=== PATIENT | female | born 1960 | race Caucasian/White ===

== ENCOUNTER 2023-07-28 07:11 | Emergency (ER) | payer OTHER ==
[~2023-07-28] VITALS: Ht 147.3 cm; Wt 54.4 kg
[2023-07-28] MEDS ORDERED: CLONAZEPAM0.125 MG PO (07:23)
[2023-07-28 08:37] LABS: ABG PH 7.489 (7.35-7.45); ABG PO2 97.2 mmHg (80-100); ABG pCO2 30.4 mmHg (35-45); BASE EXCESS 0.3 mmol/l; BICARBONATE 22.6 mmol/l (23-25); SaO2 98.1 %; Tco2 23.5 mmol/l; allen test SATISFACTORY; o2 21 %; puncture site RADIAL RIGHT
== END 2023-07-28 18:48 | disposition home or self-care (01) ==
LOC: ER 07:12
DX: F41.1 Generalized anxiety disorder (principal); J45.909 Unspecified asthma, uncomplicated; Z88.8 Allergy status to other drugs, medicaments and biological substances

== ENCOUNTER 2023-11-10 12:42 | Emergency (ER) | payer OTHER ==
[~2023-11-10] VITALS: Ht 147.3 cm; Wt 54.0 kg
[~2023-11-10 12:42] MED LIST: CLONAZEPAM0.125 MG PO
[2023-11-10] MEDS ORDERED: PROZAC20 MG PO (12:56)
[2023-11-10] MEDS ORDERED: MELATONIN10 MG PO (12:56)
[2023-11-10] MEDS ORDERED: CLONAZEPAM 1 MG TABLET PO STA (13:39)
== END 2023-11-10 16:24 | disposition home or self-care (01) ==
LOC: ER 12:43
DX: F41.8 Other specified anxiety disorders (principal); Z88.8 Allergy status to other drugs, medicaments and biological substances

== ENCOUNTER 2024-02-27 20:05 | Emergency (ER) | payer OTHER ==
[~2024-02-27] VITALS: Ht 157.5 cm; Wt 54.4 kg
[~2024-02-27 20:05] MED LIST changes: +MELATONIN10 MG PO; +PROZAC20 MG PO
[2024-02-27] MEDS ORDERED: ATIVAN0.5 M1 (20:49)
[2024-02-27] MEDS ORDERED: RESTORIL7.5 MG (20:49)
[2024-02-27] MEDS ORDERED: PROSCAR5 MG (20:49)
[2024-02-27] MEDS ORDERED: PROMETHAZINE HCL 25 MG/ML AMPUL IM STA (20:58)
[2024-02-27] MEDS ORDERED: DEXTROSE 5 % AND 0.9 % NACL 500 ML IV STA (20:59)
[2024-02-27] MEDS ORDERED: ONDANSETRON HCL 2 MG/ML VIAL IV STA (21:00)
[2024-02-27] MEDS ORDERED: FAMOTIDINE/PF 20 MG/2 ML VIAL IV PUSH STA (21:00)
[2024-02-27] MEDS ORDERED: PROMETHAZINE HCL 25 MG/ML AMPUL ONE (21:06)
[2024-02-27] MEDS ORDERED: ONDANSETRON HCL 2 MG/ML VIAL ONE (21:06)
[2024-02-27] MEDS ORDERED: FAMOTIDINE/PF 20 MG/2 ML VIAL ONE (21:06)
[2024-02-27 21:46] LABS: HEMATOCRIT 38.2 % (36.0-45.00); HEMOGLOBIN 13.3 g/dL (12.0-15.00); MEAN CELL VOLUME 88.2 fL (80.00-100.00); MEAN CORPUSCULAR HEMOGLOBIN 30.7 pg (27.00-32.0); MEAN CORPUSCULAR HGB CONC 34.8 g/dl (32.0-36.0); PLATELET COUNT 243 K/uL (150-450); RED BLOOD COUNT 4.33 M/uL (4.00-6.00); RED CELL DISTRIBUTION WIDTH 13.9 % (11.5-14.5)
[2024-02-27 22:03] LABS: AMYLASE 88 U/L (25-115); LIPASE 46 U/L (13-75)
[2024-02-27 22:58] LABS: PH,URINE 6.5 (5.0-8.0); URINE APPEARANCE Clear; URINE BILIRRUBIN Negative (NEGATIVE); URINE BLOOD Trace; URINE COLOR Yellow; URINE GLUCOSE Negative (NEGATIVE); URINE LEUKOCYTE Large; URINE NITRATE Negative; URINE PROTEIN Negative (NEGATIVE); URINE UROBILINOGEN 0.2 E.U./dl
[2024-02-27 23:01] LABS: URINE BACTERIA 79.3 uL (0.0-1933); URINE EPITHELIAL CELLS 23.3 uL (0.0-38.8); URINE RBC 11.7 uL (0.0-20.8); URINE WBC 838.3 uL (0.0-23.2)
[2024-02-27] MEDS ORDERED: KETOROLAC TROMETHAMINE 30 MG VIAL IV STA (23:16)
[2024-02-27] MEDS ORDERED: LIDOCAINE HCL 4% Topic SOLUTION TOP STA (23:17)
[2024-02-27] MEDS ORDERED: MAGNESIUM HYDROXIDE 400 MG/5 ML ML PO STA (23:18)
[2024-02-27] MEDS ORDERED: LIDOCAINE HCL VISCOUS 20MG/ML BLIST 15ML MM ONE (23:38)
[2024-02-27] MEDS ORDERED: KETOROLAC TROMETHAMINE 30 MG VIAL ONE (23:38)
[2024-02-27] MEDS ORDERED: MAGNESIUM HYDROXIDE 30 ML BLIST.PACK PO ONE (23:38)
== END 2024-02-28 00:48 | disposition home or self-care (01) ==
LOC: ER 20:05
PROVIDERS: Emergency Medicine
DX: K29.70 Gastritis, unspecified, without bleeding (principal); K27.9 Peptic ulcer, site unspecified, unspecified as acute or chronic, without hemorrhage or perforation; Z88.8 Allergy status to other drugs, medicaments and biological substances; F41.8 Other specified anxiety disorders

== ENCOUNTER 2024-03-22 10:04 | Emergency (ER) | payer OTHER ==
[~2024-03-22] VITALS: Ht 149.9 cm; Wt 59.0 kg
[~2024-03-22 10:04] MED LIST changes: +ATIVAN0.5 M1; +PROSCAR5 MG; +RESTORIL7.5 MG
[2024-03-22] MEDS ORDERED: LORazepam 2 MG/ML VIAL ONE (10:21)
[2024-03-22] MEDS ORDERED: FAMOTIDINE/PF 20 MG/2 ML VIAL IV PUSH ONE (10:30)
[2024-03-22] MEDS ORDERED: LORazepam 2 MG/ML VIAL IV ONE (10:30)
== END 2024-03-22 12:36 | disposition home or self-care (01) ==
LOC: ER 10:04
DX: F41.0 Panic disorder [episodic paroxysmal anxiety] (principal); Z88.0 Allergy status to penicillin

== ENCOUNTER 2024-04-16 12:48 | Emergency (ER) | payer OTHER ==
[~2024-04-16] VITALS: Ht 147.3 cm; Wt 49.9 kg
[2024-04-16] MEDS ORDERED: HALOPERIDOL LACTATE 5 MG/ML AMPUL IM ONE (13:15)
[2024-04-16] MEDS ORDERED: DIPHENHYDRAMINE HCL 50 MG/ML VIAL 1ML IM ONE (13:15)
[2024-04-16] MEDS ORDERED: DIPHENHYDRAMINE HCL 50 MG/ML VIAL 1ML ONE (13:23)
[2024-04-16] MEDS ORDERED: HALOPERIDOL LACTATE 5 MG/ML AMPUL ONE (13:23)
[2024-04-16] MEDS ORDERED: LORazepam 2 MG/ML VIAL IM STA (14:02)
[2024-04-16] MEDS ORDERED: LORazepam 2 MG/ML VIAL ONE (14:03)
== END 2024-04-16 16:30 | disposition home or self-care (01) ==
LOC: ER 12:48
DX: F41.0 Panic disorder [episodic paroxysmal anxiety] (principal); Z88.6 Allergy status to analgesic agent

== ENCOUNTER 2024-04-26 15:07 | Emergency (ER) | payer OTHER ==
[~2024-04-26] VITALS: Ht 121.9 cm; Wt 46.7 kg
[2024-04-26] MEDS ORDERED: LORazepam 2 MG/ML VIAL IV ONE (17:00)
[2024-04-26] MEDS ORDERED: 0.9 % SODIUM CHLORIDE 1,000 ML IV ONE (17:00)
[2024-04-26] MEDS ORDERED: LORazepam 2 MG/ML VIAL ONE (17:19)
== END 2024-04-26 18:59 | disposition home or self-care (01) ==
LOC: ER 15:07
DX: F41.0 Panic disorder [episodic paroxysmal anxiety] (principal); Z88.8 Allergy status to other drugs, medicaments and biological substances

== ENCOUNTER 2024-05-03 14:00 | Emergency (ER) | payer OTHER ==
[~2024-05-03] VITALS: Ht 147.3 cm; Wt 47.6 kg
[2024-05-03] MEDS ORDERED: LORazepam 2 MG/ML VIAL IV ONE (16:15)
[2024-05-03 16:39] LABS: HEMOGLOBIN 13.6 g/dL (12.0-15.00); MEAN CELL VOLUME 89.3 fL (80.00-100.00); MEAN CORPUSCULAR HEMOGLOBIN 31.2 pg (27.00-32.0); PLATELET COUNT 218 K/uL (150-450); RED BLOOD COUNT 4.37 M/uL (4.00-6.00)
[2024-05-03] MEDS ORDERED: FAMOTIDINE/PF 20 MG/2 ML VIAL ONE (16:41)
[2024-05-03] MEDS ORDERED: LORazepam 2 MG/ML VIAL ONE (16:41)
[2024-05-03 17:31] LABS: CALCIUM 9.4 mg/dL (8.5-10.1); CREATININE SERUM 0.92 mg/dL (0.55-1.02); GFR 62.06; POTASSIUM 3.69 mEq/L (3.5-5.1)
== END 2024-05-03 17:55 | disposition home or self-care (01) ==
LOC: ER 14:01
PROVIDERS: General Practice
DX: F41.8 Other specified anxiety disorders (principal); Z88.8 Allergy status to other drugs, medicaments and biological substances; F32.89 Other specified depressive episodes

== ENCOUNTER 2024-06-14 18:39 | Emergency (ER) | payer OTHER ==
[~2024-06-14] VITALS: Ht 152.4 cm; Wt 49.9 kg
[2024-06-14] MEDS ORDERED: ATIVAN1 M1 (18:41)
[2024-06-14] MEDS ORDERED: ONDANSETRON HCL 2 MG/ML VIAL IV STA (18:58)
[2024-06-14] MEDS ORDERED: LORazepam 1 MG TABLET PO ONE (19:00)
[2024-06-14] MEDS ORDERED: ACETAMINOPHEN 500 MG GEL..CAP PO ONE (19:15)
== END 2024-06-14 21:13 | disposition home or self-care (01) ==
LOC: ER 18:41
DX: F32.89 Other specified depressive episodes (principal); Z88.8 Allergy status to other drugs, medicaments and biological substances
CPT/HCPCS: 96365; 99282; J2405

== ENCOUNTER 2024-07-06 11:18 | Emergency (ER) | payer OTHER ==
[~2024-07-06] VITALS: Ht 147.3 cm; Wt 44.9 kg
[~2024-07-06 11:18] MED LIST changes: +ATIVAN1 M1
[2024-07-06] MEDS ORDERED: PEPCID AC20 MG PO (12:00)
[2024-07-06] MEDS ORDERED: NASAL MIST126 ML (12:00)
[2024-07-06] MEDS ORDERED: FAMOTIDINE/PF 20 MG in 0.9 % SODIUM CHLORIDE 8 ML IV PUSH STA (12:11)
[2024-07-06] MEDS ORDERED: LORazepam 2 MG/ML VIAL IM ONE (12:15)
[2024-07-06] MEDS ORDERED: ONDANSETRON HCL 2 MG/ML VIAL IV ONE (12:45)
== END 2024-07-06 14:48 | disposition home or self-care (01) ==
LOC: ER 11:18
DX: F32.89 Other specified depressive episodes (principal); Z88.8 Allergy status to other drugs, medicaments and biological substances

== ENCOUNTER 2024-07-10 13:11 | Emergency (ER) | payer OTHER ==
[~2024-07-10] VITALS: Ht 147.3 cm; Wt 43.1 kg
[~2024-07-10 13:11] MED LIST changes: +NASAL MIST126 ML; +PEPCID AC20 MG PO
[2024-07-10] MEDS ORDERED: SODIUM CHLORIDE IV STA (13:39)
[2024-07-10] MEDS ORDERED: DIPHENHYDRAMINE HCL 50 MG/ML VIAL 1ML IV STA (13:40)
[2024-07-10] MEDS ORDERED: LORazepam 2 MG/ML VIAL IM STA ×2 (14:19→14:22)
[2024-07-10] MEDS ORDERED: FAMOtidine 10 MG/ML (4ML VIAL) IV PUSH STA (16:17)
[2024-07-10] MEDS ORDERED: PEPCID AC20 MG PO (16:41)
== END 2024-07-10 16:46 | disposition home or self-care (01) ==
LOC: ER 13:11
DX: F41.9 Anxiety disorder, unspecified (principal); F32.A Depression, unspecified; Z88.8 Allergy status to other drugs, medicaments and biological substances

== ENCOUNTER → 2024-10-01 | Emergency (ER) | payer OTHER ==
[~2024-10-01] VITALS: Ht 162.6 cm; Wt 68.0 kg
== END | disposition left against medical advice (07) ==
LOC: ER 15:46
DX: Z53.21 Procedure and treatment not carried out due to patient leaving prior to being seen by health care provider (principal)

== ENCOUNTER → 2024-10-05 | Emergency (ER) | payer OTHER ==
[~2024-10-05] VITALS: Ht 147.3 cm; Wt 54.0 kg
== END | disposition left against medical advice (07) ==
LOC: ER 12:23
DX: Z53.21 Procedure and treatment not carried out due to patient leaving prior to being seen by health care provider (principal)

== ENCOUNTER 2024-12-24 10:45 | Emergency (ER) | payer OTHER ==
[~2024-12-24] VITALS: Ht 147.3 cm; Wt 52.2 kg
[2024-12-24 10:59] VITALS: BP 157/74; O2SAT 97
[2024-12-24] MEDS ORDERED: LORazepam 2 MG/ML VIAL IV PUSH ONE (11:00)
[2024-12-24] MEDS ORDERED: LORazepam 2 MG/ML VIAL ONE (11:20)
== END 2024-12-24 13:58 | disposition home or self-care (01) ==
LOC: ER 10:45
DX: F41.0 Panic disorder [episodic paroxysmal anxiety] (principal); Z88.8 Allergy status to other drugs, medicaments and biological substances

== ENCOUNTER 2024-12-31 14:43 | Emergency (ER) | payer OTHER ==
[~2024-12-31] VITALS: Ht 147.3 cm; Wt 52.2 kg
[2024-12-31] MEDS ORDERED: REMERON15 M1 (15:03)
[2024-12-31] MEDS ORDERED: FAMOTIDINE/PF 20 MG in 0.9 % SODIUM CHLORIDE 8 ML IV PUSH STA (15:04)
[2024-12-31] MEDS ORDERED: ONDANSETRON HCL 2 MG/ML VIAL IV STA (15:04)
[2024-12-31] MEDS ORDERED: 0.9 % SODIUM CHLORIDE 1,000 ML IV STA (15:04)
[2024-12-31] MEDS ORDERED: LORazepam 2 MG/ML VIAL IV ONE ×2 (15:15→19:30)
[2024-12-31] MEDS ORDERED: ONDANSETRON HCL 2 MG/ML VIAL ONE (15:45)
[2024-12-31] MEDS ORDERED: FAMOTIDINE/PF 20 MG/2 ML VIAL ONE (15:46)
[2024-12-31 16:44] LABS: HEMATOCRIT 39.2 % (36.0-45.00); HEMOGLOBIN 13.7 g/dL (12.0-15.00); MEAN CELL VOLUME 90.4 fL (80.00-100.00); MEAN CORPUSCULAR HEMOGLOBIN 31.6 pg (27.00-32.0); PLATELET COUNT 217 K/uL (150-450); RED BLOOD COUNT 4.33 M/uL (4.00-6.00); RED CELL DISTRIBUTION WIDTH 13.5 % (11.5-14.5)
[2024-12-31] MEDS ORDERED: LORazepam 2 MG/ML VIAL ONE ×2 (16:48→19:49)
[2024-12-31 17:26] LABS: AMYLASE 81 U/L (25-115); LIPASE 33 U/L (13-75)
[2024-12-31 17:30] LABS: ALBUMIN 3.5 gm/dL (3.4-5.0); BILIRUBIN TOTAL 0.39 mg/dL (0.3-1.2); CALCIUM 8.9 mg/dL (8.5-10.1); CREATININE SERUM 0.69 mg/dL (0.55-1.02); GFR 86.21; POTASSIUM 4.21 mEq/L (3.5-5.1); TOTAL PROTEIN 6.5 gm/dL (6.4-8.2)
[2024-12-31] MEDS ORDERED: MIRALAX17 GM PO (19:20)
[2025-01-01] MEDS ORDERED: PROTONIX40 MG PO (14:43)
[2025-01-01] MEDS ORDERED: NORFLEX100MG PO (14:43)
[2025-01-01] MEDS ORDERED: LEVSIN/SL0.125 MG SL (14:43)
== END 2024-12-31 22:01 | disposition home or self-care (01) ==
LOC: ER 14:43
PROVIDERS: Emergency Medicine
DX: K59.00 Constipation, unspecified (principal); F41.9 Anxiety disorder, unspecified; Z88.8 Allergy status to other drugs, medicaments and biological substances

== ENCOUNTER 2025-01-01 11:29 | Emergency (ER) | payer OTHER ==
[~2025-01-01] VITALS: Ht 147.3 cm; Wt 50.8 kg
[~2025-01-01 11:29] MED LIST changes: +MIRALAX17 GM PO; +REMERON15 M1
[2025-01-01] MEDS ORDERED: LORazepam 2 MG/ML VIAL IM ONE (12:30)
[2025-01-01] MEDS ORDERED: FAMOtidine 10 MG/ML (4ML VIAL) IV ONE (12:30)
[2025-01-01] MEDS ORDERED: KETOROLAC TROMETHAMINE 30 MG VIAL IV ONE (12:30)
[2025-01-01] MEDS ORDERED: ONDANSETRON HCL 2 MG/ML VIAL IV ONE (12:30)
[2025-01-01 13:14] LABS: HEMATOCRIT 41.8 % (36.0-45.00); HEMOGLOBIN 14.1 g/dL (12.0-15.00); MEAN CELL VOLUME 91.8 fL (80.00-100.00); MEAN CORPUSCULAR HEMOGLOBIN 31.1 pg (27.00-32.0); MEAN CORPUSCULAR HGB CONC 33.8 g/dl (32.0-36.0); PLATELET COUNT 226 K/uL (150-450); RED BLOOD COUNT 4.55 M/uL (4.00-6.00); RED CELL DISTRIBUTION WIDTH 13.5 % (11.5-14.5)
[2025-01-01 13:50] LABS: ALBUMIN 3.7 gm/dL (3.4-5.0); BILIRUBIN TOTAL 0.37 mg/dL (0.3-1.2); CREATININE SERUM 0.91 mg/dL (0.55-1.02); GFR 62.64; GLOBULINA 3.4 G/DL (2.4-3.5); POTASSIUM 4.02 mEq/L (3.5-5.1); TOTAL PROTEIN 7.1 gm/dL (6.4-8.2)
[2025-01-01] MEDS ORDERED: LEVSIN/SL0.125 MG SL (14:43)
[2025-01-01] MEDS ORDERED: NORFLEX100MG PO (14:43)
[2025-01-01] MEDS ORDERED: PROTONIX40 MG PO (14:43)
== END 2025-01-01 15:37 | disposition home or self-care (01) ==
LOC: ER 11:30
PROVIDERS: General Practice
DX: R10.11 Right upper quadrant pain (principal); Z88.8 Allergy status to other drugs, medicaments and biological substances; R11.10 Vomiting, unspecified; F41.8 Other specified anxiety disorders; K80.20 Calculus of gallbladder without cholecystitis without obstruction

== ENCOUNTER 2025-04-01 18:41 | Emergency (ER) | payer OTHER ==
[~2025-04-01] VITALS: Ht 147.3 cm; Wt 51.3 kg
[~2025-04-01 18:41] MED LIST changes: +LEVSIN/SL0.125 MG SL; +NORFLEX100MG PO; +PROTONIX40 MG PO
[2025-04-01 18:43] VITALS: BP 130/80; O2SAT 97
[2025-04-01] MEDS ORDERED: LORazepam 2 MG/ML VIAL IM ONE (19:00)
== END 2025-04-01 19:36 | disposition home or self-care (01) ==
LOC: ER 18:41
DX: R06.02 Shortness of breath (principal); F41.9 Anxiety disorder, unspecified; R00.2 Palpitations; R11.0 Nausea; Z88.0 Allergy status to penicillin

== ENCOUNTER → 2025-04-16 | Emergency (ER) | payer OTHER ==
[~2025-04-16] VITALS: Ht 147.3 cm; Wt 51.7 kg
[~2025-04-16] MED LIST changes: +LORazepam 2 MG/ML VIAL IM STA
== END | disposition left against medical advice (07) ==
LOC: ER 11:21
DX: Z53.21 Procedure and treatment not carried out due to patient leaving prior to being seen by health care provider (principal); Z88.1 Allergy status to other antibiotic agents

== ENCOUNTER 2025-05-30 12:37 | Emergency (ER) | payer OTHER ==
[~2025-05-30] VITALS: Ht 147.3 cm; Wt 53.5 kg
[~2025-05-30 12:37] MED LIST changes: -LORazepam 2 MG/ML VIAL IM STA
[2025-05-30] MEDS ORDERED: VISTARIL50 MG/ML (12:41)
[2025-05-30] MEDS ORDERED: PROZAC10 MG PO (12:41)
[2025-05-30] MEDS ORDERED: DIPHENHYDRAMINE HCL 50 MG/ML VIAL 1ML IV ONE (13:00)
[2025-05-30] MEDS ORDERED: LORazepam 2 MG/ML VIAL IM ONE ×2 (13:00→13:15)
[2025-05-30] MEDS ORDERED: DIPHENHYDRAMINE HCL 50 MG/ML VIAL 1ML ONE (13:10)
[2025-05-30] MEDS ORDERED: LORazepam 2 MG/ML VIAL ONE (13:10)
[2025-05-30] MEDS ORDERED: ONDANSETRON HCL 2 MG/ML VIAL ONE (13:38)
[2025-05-30] MEDS ORDERED: ONDANSETRON HCL 2 MG/ML VIAL IV ONE (13:45)
[2025-05-30 13:50] LABS: BASO % 0.4 % (0.1-1.2); EOS # 0.01 (0.04-0.54); EOS % 0.1 % (0.7-7.0); LYMPH # 1.51 (1.18-3.74); LYMPH % 18.0 % (19.3-53.1); MEAN PLATELET VOLUME 10.20 fl (9.4-12.4); MONO # 0.57 (0.24-0.82); MONO % 6.8 % (4.7-12.5); NEUT # 6.25 (1.56-6.13); NEUT % 74.3 % (34.0-71.1); RED CELL DISTRIBUTION WIDTH 12.6 % (11.6-14.4)
[2025-05-30 14:16] LABS: ALT/SGPT 16.0 U/L (12-78); AST/SGOT 14.0 U/L (15-37); BILIRUBIN TOTAL 0.41 mg/dL (0.3-1.2); BUN CREA RATIO 14.0 (7.0-25.0); CREATININE SERUM 1.15 mg/dL (0.55-1.02); GFR 47.81; GLOBULINA 3.5 G/DL (2.4-3.5); GLUCOSE FASTING 121.0 mg/dL (65-100); OSMOLALITY SERUM 282.0 MOSM/KG (275-295)
== END 2025-05-30 14:54 | disposition home or self-care (01) ==
LOC: ER 12:38
PROVIDERS: General Practice
DX: F41.0 Panic disorder [episodic paroxysmal anxiety] (principal); F43.0 Acute stress reaction; I10 Essential (primary) hypertension; Z88.8 Allergy status to other drugs, medicaments and biological substances

== ENCOUNTER 2025-06-04 21:37 | Emergency (ER) | payer OTHER ==
[~2025-06-04] VITALS: Ht 147.3 cm; Wt 53.5 kg
[~2025-06-04 21:37] MED LIST changes: +PROZAC10 MG PO; +VISTARIL50 MG/ML
[2025-06-04] MEDS ORDERED: DIPHENHYDRAMINE HCL 50 MG/ML VIAL 1ML IM STA (23:40)
[2025-06-04] MEDS ORDERED: LORazepam 2 MG/ML VIAL IV STA (23:41)
[2025-06-04] MEDS ORDERED: 0.9 % SODIUM CHLORIDE 1,000 ML IV SCH (23:45)
[2025-06-04] MEDS ORDERED: DIPHENHYDRAMINE HCL 50 MG/ML VIAL 1ML ONE (23:47)
[2025-06-04] MEDS ORDERED: ONDANSETRON HCL 2 MG/ML VIAL ONE (23:47)
[2025-06-04] MEDS ORDERED: LORazepam 2 MG/ML VIAL ONE (23:48)
[2025-06-05 00:13] LABS: BASO % 0.4 % (0.1-1.2); EOS # 0.09 (0.04-0.54); EOS % 1.3 % (0.7-7.0); LYMPH # 2.46 (1.18-3.74); LYMPH % 34.5 % (19.3-53.1); MEAN PLATELET VOLUME 9.70 fl (9.4-12.4); MONO # 0.67 (0.24-0.82); MONO % 9.4 % (4.7-12.5); NEUT # 3.88 (1.56-6.13); NEUT % 54.3 % (34.0-71.1); RED CELL DISTRIBUTION WIDTH 12.9 % (11.6-14.4)
[2025-06-05 00:45] LABS: ALT/SGPT 20.0 U/L (12-78); AST/SGOT 10.0 U/L (15-37); BILIRUBIN TOTAL 0.24 mg/dL (0.3-1.2); BUN CREA RATIO 15.0 (7.0-25.0); CREATININE SERUM 0.93 mg/dL (0.55-1.02); GFR 61.09; GLOBULINA 2.8 G/DL (2.4-3.5); GLUCOSE FASTING 111.0 mg/dL (65-100); OSMOLALITY SERUM 292.0 MOSM/KG (275-295); TSH 2.18 uIU/mL (0.358-3.74)
[2025-06-05] MEDS ORDERED: ONDANSETRON HCL 4 MG in 0.9 % SODIUM CHLORIDE 50 ML IV SCH (01:00)
[2025-06-05] MEDS ORDERED: CEFTRIAXONE SODIUM 2,000 MG VIAL ONE (08:28)
== END 2025-06-05 07:35 | disposition home or self-care (01) ==
LOC: ER 21:37
PROVIDERS: Physician Assistant Medical
DX: F41.0 Panic disorder [episodic paroxysmal anxiety] (principal); F41.1 Generalized anxiety disorder; F41.9 Anxiety disorder, unspecified; Z88.0 Allergy status to penicillin; Z88.8 Allergy status to other drugs, medicaments and biological substances

== ENCOUNTER → 2025-06-05 | Emergency (ER) | payer OTHER ==
[~2025-06-05] VITALS: Ht 152.4 cm; Wt 63.5 kg
[~2025-06-05] MED LIST changes: +FAMOTIDINE/PF 20 MG/2 ML VIAL IV ONE; +FAMOTIDINE/PF 20 MG/2 ML VIAL ONE; +LORazepam 2 MG/ML VIAL IV ONE; +LORazepam 2 MG/ML VIAL ONE; +ONDANSETRON HCL 2 MG/ML VIAL IV ONE; +ONDANSETRON HCL 2 MG/ML VIAL ONE
[2025-06-05 16:39] LABS: BASO % 0.4 % (0.1-1.2); EOS # 0.02 (0.04-0.54); EOS % 0.3 % (0.7-7.0); LYMPH # 1.46 (1.18-3.74); LYMPH % 19.0 % (19.3-53.1); MEAN PLATELET VOLUME 9.90 fl (9.4-12.4); MONO # 0.66 (0.24-0.82); MONO % 8.6 % (4.7-12.5); NEUT # 5.50 (1.56-6.13); NEUT % 71.4 % (34.0-71.1); RED CELL DISTRIBUTION WIDTH 12.7 % (11.6-14.4)
[2025-06-05 17:06] LABS: ALT/SGPT 17.0 U/L (12-78); AST/SGOT 12.0 U/L (15-37); BILIRUBIN TOTAL 0.42 mg/dL (0.3-1.2); BUN CREA RATIO 17.0 (7.0-25.0); CREATININE SERUM 0.78 mg/dL (0.55-1.02); GFR 74.83; GLOBULINA 3.1 G/DL (2.4-3.5); GLUCOSE FASTING 71.0 mg/dL (65-100); OSMOLALITY SERUM 282.0 MOSM/KG (275-295)
== END | disposition left against medical advice (07) ==
LOC: ER 15:22
PROVIDERS: General Practice
DX: S80.01XA Contusion of right knee, initial encounter (principal); W19.XXXA Unspecified fall, initial encounter; Y93.89 Activity, other specified; Y92.89 Other specified places as the place of occurrence of the external cause; Y99.9 Unspecified external cause status; F41.9 Anxiety disorder, unspecified; Z88.8 Allergy status to other drugs, medicaments and biological substances; Z87.09 Personal history of other diseases of the respiratory system

== ENCOUNTER 2025-06-06 14:02 | Emergency (ER) | payer OTHER ==
[~2025-06-06] VITALS: Ht 152.4 cm; Wt 53.5 kg
[~2025-06-06 14:02] MED LIST changes: -FAMOTIDINE/PF 20 MG/2 ML VIAL IV ONE; -FAMOTIDINE/PF 20 MG/2 ML VIAL ONE; -LORazepam 2 MG/ML VIAL IV ONE; -LORazepam 2 MG/ML VIAL ONE; -ONDANSETRON HCL 2 MG/ML VIAL IV ONE; -ONDANSETRON HCL 2 MG/ML VIAL ONE
[2025-06-06] MEDS ORDERED: FAMOTIDINE/PF 20 MG/2 ML VIAL IV ONE (14:15)
[2025-06-06] MEDS ORDERED: 0.9 % SODIUM CHLORIDE 1,000 ML IV SCH (14:15)
[2025-06-06] MEDS ORDERED: LORazepam 2 MG/ML VIAL IV ONE (14:15)
[2025-06-06] MEDS ORDERED: LORazepam 2 MG/ML VIAL ONE (15:12)
[2025-06-06] MEDS ORDERED: DIPHENHYDRAMINE HCL 50 MG/ML VIAL 1ML IV ONE (16:15)
[2025-06-06] MEDS ORDERED: ONDANSETRON HCL 4 MG in 0.9 % SODIUM CHLORIDE 50 ML IV ONE (18:45)
== END 2025-06-07 01:11 | disposition home or self-care (01) ==
LOC: ER 14:02
DX: F41.0 Panic disorder [episodic paroxysmal anxiety] (principal); Z88.1 Allergy status to other antibiotic agents; K21.9 Gastro-esophageal reflux disease without esophagitis; J45.909 Unspecified asthma, uncomplicated

== ENCOUNTER 2025-07-14 13:19 | Emergency (ER) | payer OTHER ==
[~2025-07-14] VITALS: Ht 147.3 cm; Wt 48.1 kg
[2025-07-14] MEDS ORDERED: LORazepam 2 MG/ML VIAL IM STA (14:02)
[2025-07-15] MEDS ORDERED: CLONAZEPAM0.5 MG PO (12:01)
[2025-07-15] MEDS ORDERED: EFFEXOR XR37.5 MG PO (12:02)
== END 2025-07-14 15:47 | disposition home or self-care (01) ==
LOC: ER 13:19
DX: F41.0 Panic disorder [episodic paroxysmal anxiety] (principal); Z88.1 Allergy status to other antibiotic agents; Z88.8 Allergy status to other drugs, medicaments and biological substances

== ENCOUNTER 2025-07-15 11:56 | Emergency (ER) | payer OTHER ==
[~2025-07-15] VITALS: Ht 147.3 cm; Wt 48.1 kg
[2025-07-15] MEDS ORDERED: CLONAZEPAM0.5 MG PO (12:01)
[2025-07-15] MEDS ORDERED: EFFEXOR XR37.5 MG PO (12:02)
[2025-07-15] MEDS ORDERED: LORazepam 2 MG/ML VIAL IV STA (12:27)
[2025-07-15] MEDS ORDERED: ONDANSETRON HCL 2 MG/ML VIAL IV STA (12:29)
[2025-07-15] MEDS ORDERED: FAMOTIDINE/PF 20 MG/2 ML VIAL IV STA (12:29)
[2025-07-15] MEDS ORDERED: 0.9 % SODIUM CHLORIDE 1,000 ML IV SCH (12:30)
[2025-07-15] MEDS ORDERED: LORazepam 2 MG/ML VIAL ONE (12:51)
[2025-07-15 13:32] LABS: BASO % 0.2 % (0.1-1.2); EOS # 0.00 (0.04-0.54); EOS % 0.0 % (0.7-7.0); LYMPH # 1.73 (1.18-3.74); LYMPH % 20.0 % (19.3-53.1); MEAN PLATELET VOLUME 10.40 fl (9.4-12.4); MONO # 0.53 (0.24-0.82); MONO % 6.1 % (4.7-12.5); NEUT # 6.32 (1.56-6.13); NEUT % 73.4 % (34.0-71.1); RED CELL DISTRIBUTION WIDTH 14.2 % (11.6-14.4)
[2025-07-15 14:15] LABS: ALT/SGPT 21.0 U/L (12-78); AST/SGOT 14.0 U/L (15-37); BILIRUBIN TOTAL 0.46 mg/dL (0.3-1.2); BUN CREA RATIO 15.0 (7.0-25.0); CREATININE SERUM 0.79 mg/dL (0.55-1.02); GFR 73.74; GLOBULINA 2.9 G/DL (2.4-3.5); GLUCOSE FASTING 93.0 mg/dL (65-100); OSMOLALITY SERUM 284.0 MOSM/KG (275-295)
== END 2025-07-15 15:12 | disposition home or self-care (01) ==
LOC: ER 11:56
PROVIDERS: Physician Assistant Medical
DX: F41.9 Anxiety disorder, unspecified (principal); Z88.0 Allergy status to penicillin; Z88.8 Allergy status to other drugs, medicaments and biological substances